=== PATIENT | female | born 1940 | race Caucasian/White ===

== ENCOUNTER 2020-01-06 18:19 | Inpatient (IN) | payer MEDICARE ==
[~2020-01-06] VITALS: Ht 160 cm; Wt 53.5 kg
[2020-01-06 19:50] VITALS: BP 139/79
[2020-01-06 20:00] VITALS: BP 141/82
[2020-01-06 20:24] VITALS: BP 139/79
[2020-01-06] MEDS ORDERED: MAG HYDROX/AL HYDROX/SIMETH 30 ML UDC PO PRN (20:30)
[2020-01-06] MEDS ORDERED: clonazePAM 0.5 MG TABLET PO PRN (20:30)
[2020-01-06] MEDS ORDERED: BLOOD SUGAR DIAGNOSTIC 1 EACH STRIP IN ONE (20:30)
[2020-01-06] MEDS ORDERED: MAGNESIUM HYDROXIDE 30 ML UDC PO PRN (20:30)
[2020-01-06] MEDS ORDERED: TEMAZEPAM 7.5 MG CAPSULE PO PRN (20:30)
--- NOTE | 2020-01-06 20:50 | NUR ---
LEFT A NOTE MESSAGE ON MD BOARD SPOKE TO SON ANDRADE @ [phone] & SON WOULD LIKE TO TALK TO THE PSYCHIATRIST OF HIS MOTHER SOFIYA ABRAHAM FOR UPDATES. WILL ENDORSE TO AM RN WELL.
--- NOTE | 2020-01-06 21:00 | NUR ---
GPS RN NOTE: ADMISSION ADMITTED PATIENT FROM [facility], 79-YR OLD FEMALE, DIRECT ADMIT TO GPS UNIT. PATIENT WAS TAKEN TO [facility] FROM HOME BY HER SON. PER 5150 HOLD, PATIENT IS ANXIOUS/CONFUSED. PT. WAS BROUGHT TO THE HOSPITAL BY FAMILY MEMBER DUE TO WORSENING AGITATION, INSOMNIA. PER SON, PT. HAS H/O BIPOLAR D/O FOR WHICH SHE HAS BEEN TAKING MEDS. PT. HAS NOT BEEN SLEEPING SINCE HER 2 MONTHS AGO. SHE SLEEPS FOR 2 HOURS & THEN STARTS YELLING & SCREAMING. SUSPICIOUS ABOUT HER SONS. ACCUSED OTHER FAMILY MEMBERS WELL. PATIENT DENIED SI/HI. PATIENT IS UNABLE TO STATE PLAN FOR SELF CARE. UPON FACE TO FACE ASSESSMENT, PATIENT IS A/O X 2, CONFUSED, FORGETFUL, ANXIOUS/RESTLESS AT TIMES. DEPRESSED, CRYING, MISSING HER , EMOTIONAL, ACCUSING HER SON HAVING,"TWO FACE", FLAT AFFECT. DENIES SI/HI/AVH AT THIS TIME. DISORGANIZED, DISHEVELED. AMBULATORY/UNSTEADY, HIGH FALL RISK, INCONTINENT. PT'S RIGHTS HANDBOOK AND A GUIDE TO PRESCRIPTION MEDICATIONS GIVEN. IN NO APPARENT DISTRESS NOTED. BELONGINGS WERE INVENTORIED AND CHECKED FOR CONTRABAND. PT. IS UNDER THE PSYCHIATRIC CARE OF DR. AMOS & UNDER THE MEDICAL CARE OF DR. GOMEZ. ORDERS OBTAINED FROM . SKIN ASSESSMENT DONE. PICTURES TAKEN & PLACED IN CHART. PT DENIES PAIN/ DISCOMFORT AT THIS TIME. BED LOCKED AND PLACED IN LOWEST POSITION TO MAINTAIN SAFETY. BED ALARM ON. FALL PRECAUTIONS IMPLEMENTED. BED ALARM ON. WILL CONTINUE TO MONITOR Q15 MINS. FOR SAFETY AND BEHAVIOR.
--- NOTE | 2020-01-06 21:00 | NUR ---
DR. AMOS WAS NOTIFIED BY CHARGE NURSE ABOUT PATIENT'S ADMISSION.
[2020-01-06] MEDS ORDERED: CITA20TA19 PO (22:32)
[2020-01-06] MEDS ORDERED: AMIT50TA3 PO (22:32)
[2020-01-06] MEDS ORDERED: RISP0.5T20 PO (22:32)
[2020-01-06] MEDS ORDERED: OMEP20CA15 PO (22:32)
[2020-01-06] MEDS ORDERED: NAPR-1143 PO (22:32)
[2020-01-06] MEDS ORDERED: ASPI-1152 PO (22:32)
[2020-01-06] MEDS ORDERED: LACT1CAP69 PO (22:32)
[2020-01-06] MEDS ORDERED: ASCO-317 PO (22:32)
[2020-01-06] MEDS ORDERED: ROSU5TAB PO (22:32)
[2020-01-06] MEDS ORDERED: AMLO5TAB4 PO (22:32)
[2020-01-06] MEDS ORDERED: METF-440 PO (22:32)
--- NOTE | 2020-01-06 23:00 | NUR ---
NOTIFIED CHRISTIE BEATTY BY CHARGE NURSE TO RECONCILE HOME MEDICINES & STATED HE WILL DO IT SHORTLY. Addendum: 01/07/20 at 0058 by PRESTON TOTH RN LUDWIG DAVIS WAS NOTIFIED.
[2020-01-06] MEDS ORDERED: GLIM1TAB18 PO (23:04)
--- NOTE | 2020-01-07 05:54 | NUR ---
GPS RN NOTE PATIENT SLEPT WELL AT NIGHT, NO ACUTE CHANGES NOTED. REDIRECTABLE. ASSISTED WITH ADL CARE, UNSTEADY, FALL RISK. BED ALARM ON. CALM & RELAXED AT THIS TIME. NO BEHAVIOR EPISODE NOTED AT THIS TIME. WILL ENDORSE TO AM RN FOR CONTINUITY OF CARE.
--- NOTE | 2020-01-07 06:10 | NUR ---
GPS RN NOTE - FYI PER PATIENT'S SON ANDRADE, "PATIENT HAS HAD DIARRHEA MULTIPLE TIMES IN THE PAST & NOT SURE WHAT IS THE REASON & PATIENT GETS VERY ANXIOUS DURING THAT TIME. IF PATIENT SLEEPS WELL, SHE IS BETTER, OTHERWISE FREQUENT DIARRHEA & INSOMNIA CAUSES TO CHANGE HER BEHAVIOR. WILL ENDORSE TO AM RN TO CONTINUE MONITORING FOR ANY CHANGES.
[2020-01-07 07:02] LABS: ALBUMIN 3.2 g/dL (3.4-5.0); BILIRUBIN,TOTAL 0.4 mg/dL (0.2-1.0); CALCIUM, SERUM 9.2 mg/dL (8.5-10.1); CREATININE 0.9 mg/dL (0.6-1.3); POTASSIUM 2.9 mmol/L (3.5-5.1); TOTAL PROTEIN, SERUM 7.7 g/dL (6.4-8.2)
[2020-01-07 08:00] VITALS: BP 152/87
[2020-01-07] MEDS ORDERED: GLIMEPIRIDE 1 MG TABLET PO SCH (08:30)
--- NOTE | 2020-01-07 09:00 | NUR ---
RN NOTE- PT TEARFUL AND PARANOID THINKING SON IS DOING THINGS BEHIND HER BACK THOUGH DOESN'T SPECIFY MED COMPLIANT COOPERATIVE [facility] CONTACT DENYING SI HI AH VH THOUGH CRIES ON QUERY . DIRECTABLE
--- NOTE | 2020-01-07 09:05 | NUR ---
RN NOTE- PHARMACY CALLED REGARDING PTS AMARYL 1MG. DOSING UNKNOWN. PHONED SON AT THIS TIME. NO ANSWER AND VM FULL. WILL TRY AGAIN LATER
[2020-01-07] MEDS: AMLODIPINE BESYLATE 5 MG TABLET PO SCH (09:07)
[2020-01-07] MEDS: LACTOBACILLUS RHAMNOSUS GG 1 EACH CAP.SPRINK PO SCH (09:07)
[2020-01-07] MEDS: ASPIRIN EC 81 MG TABLET.DR PO SCH (09:07)
[2020-01-07] MEDS: PANTOPRAZOLE 40 MG TABLET.DR PO SCH (09:07)
[2020-01-07] MEDS: METFORMIN 500 MG TABLET PO SCH ×2 (09:07→16:54)
[2020-01-07] MEDS: POTASSIUM CHLORIDE 20 MEQ TAB.PRT.SR PO SCH ×3 (10:31→12:52)
--- NOTE | 2020-01-07 11:00 | NUR ---
RN NOTE- SPOKE Shlomo ZAFAR PTS SON. HE STATED THAT MOTHER WAS ON GLIMEPERIDE 1 MG BUT IT MADE HER BOTTOM OUT AND SHE HAD TO GO TO ER. FAMILY STATED THEY GAVE HER 0.5 MG IF BS WAS GREATER THAN 180. RELAYED THIS INFO TO .
[2020-01-07] MEDS: LOPERAMIDE HCL (2 MG CAP) 2 MG CAPSULE PO PRN (12:24)
--- NOTE | 2020-01-07 12:26 | NUR ---
RN NOTE- PT W DIARRHEA X 2 EPISODES THIS MORNING. LOPERAMIDE 2 MG CAP GIVEN
[2020-01-07 12:37] LABS: BASOPHILS # (AUTO) 0.1 /CMM (0.0-0.2); BASOPHILS % (AUTO) 1.2 % (0.0-2.0); HEMATOCRIT 38 % (33-45); HEMOGLOBIN 12.3 g/dL (11.5-14.8); LYMPHOCYTES # (AUTO) 1.8 /CMM (0.8-4.8); LYMPHOCYTES % (AUTO) 30.3 % (20.0-44.0); MEAN CORPUSCULAR HGB CONC 33 g/dl (31.0-36.0); MEAN CORPUSCULAR VOLUME 96 fL (82-100); MONOCYTES # (AUTO) 0.9 /CMM (0.1-1.30); NEUTROPHILS # (AUTO) 2.9 /CMM (1.8-8.9); NEUTROPHILS % (AUTO) 49.5 % (43.0-81.0); PLATELET COUNT (AUTO) 312 /CMM (150-450); RED BLOOD CELL COUNT(AUTO) 3.94 MIL/uL (4.0-5.2); WHITE BLOOD COUNT (AUTO) 5.8 K/uL (4.3-11.0)
[2020-01-07 15:09] LABS: EOSINOPHILS % (MANUAL) 8 % (0-4); LYMPHOCYTES % (MANUAL) 33 % (16-48); MONOCYTES % (MANUAL) 10 % (0-11.0); NEUTROPHILS % (MANUAL) 49 (42-76)
[2020-01-07 16:00] VITALS: BP_SYST 132; BP_SYST 152; BP_DIAS 64; BP_DIAS 74
[2020-01-07 21:16] VITALS: BP 149/86
[2020-01-07] MEDS: ATORVASTATIN 10 MG TABLET PO SCH (21:21)
[2020-01-07] MEDS ORDERED: MIRTAZAPINE 15 MG TABLET PO ONE (21:30)
[2020-01-07 21:40] VITALS: BP 151/85
--- NOTE | 2020-01-07 21:40 | NUR ---
PATIENT'S SON CAL CALLED TO GET UPDATES ABOUT HIS MOTHER'S HEALTH CONDITION. GAVE HIM UPDATES & CAL LEFT HIS PHONE NUMBER [phone] IN CASE FAMILY NEEDS TO BE CALLED OR ANDRADE (PT'S 2ND SON) IS UNAVAILABLE.
[2020-01-07] MEDS: HALOPERIDOL 1 MG TABLET PO SCH (21:53)
--- NOTE | 2020-01-07 22:28 | NUR ---
GPS RN NOTE: PATIENT SEEN BY MD DR. GAINES SEEN THE PATIENT WITH NEW MEDICINE ORDERS, STARTED PATIENT ON HALDOL, REMERON & DEPAKOTE. ORDERS NOTED & CARRIED OUT.
[2020-01-07 22:30] VITALS: BP 138/87
--- NOTE | 2020-01-07 22:30 | NUR ---
DR. GAINES CALLED ANDRADE & DISCUSSED WITH HIM ABOUT PLAN OF TREATMENT TO BE CONTINUED. ALSO INFORMED/EXPLAINED TO ANDRADE ABOUT EXTENSION OF 5150 HOLD TO 5250 ONCE HOD 5150 EXPIRES.
[2020-01-07] MEDS ORDERED: Z GUARD REMEDY 4 OZ OINT TP PRN (23:00)
--- NOTE | 2020-01-07 23:04 | NUR ---
GPS RN NOTE: LUDWIG DAVIS VISITED THE UNIT PATIENT IS INCONTINENT OF B & BM, HAS H/O LOOSE BM & PER AM RN REPORT PATIENT HAD LOOSE BM X 2. PATIENT VERBALIZED PERINEAL ITCHING, ASSESSED & NO REDNESS NOTED AT THIS TIME. NOTIFIED LUDWIG DAVIS ABOUT PATIENT'S CONCERN & DIVISION ORDER TECHNICIAN ORDERED Z GUARD REMEDY. NOTED & CARRIED OUT. WILL KEEP THE PATIENT CLEAN & DRY. WOUND/SKIN MANAGEMENT CARE PLAN INITIATED.
[2020-01-08] MEDS: LOPERAMIDE HCL (2 MG CAP) 2 MG CAPSULE PO PRN ×2 (02:03→12:54)
--- NOTE | 2020-01-08 02:03 | NUR ---
GPS RN NOTE: IMODIUM GIVEN PATIENT HAD EPISODE OF DIARRHEA X 1, PRN IMODIUM 2 MG 1 CAP PO GIVEN ORDERED. PATIENT HAD PO FLUIDS TOLERATED. CONTINUING TO MONITOR FOR ANY CHANGES.
[2020-01-08 07:03] LABS: CALCIUM, SERUM 9.3 mg/dL (8.5-10.1); CREATININE 0.9 mg/dL (0.6-1.3); POTASSIUM 3.1 mmol/L (3.5-5.1)
--- NOTE | 2020-01-08 07:09 | NUR ---
GPS RN NOTE PATIENT HAS H/O TB, 3 YEARS AGO, PER RECORDS FROM [facility]. NO RESPIRATORY SYMPTOMS NOTED AT THIS TIME. ENDORSED TO AM RN TO INFORM INFECTION CONTROL NURSE.
[2020-01-08] MEDS: PANTOPRAZOLE 40 MG TABLET.DR PO SCH (07:39)
[2020-01-08 08:00] VITALS: BP 131/78
[2020-01-08] MEDS: AMLODIPINE BESYLATE 5 MG TABLET PO SCH (08:25)
[2020-01-08] MEDS: DIVALPROEX SODIUM 250 MG TABLET.DR PO SCH ×2 (08:25→21:18)
[2020-01-08] MEDS: ASPIRIN EC 81 MG TABLET.DR PO SCH (08:25)
[2020-01-08] MEDS: LACTOBACILLUS RHAMNOSUS GG 1 EACH CAP.SPRINK PO SCH (08:25)
[2020-01-08] MEDS: METFORMIN 500 MG TABLET PO SCH ×2 (08:26→17:06)
[2020-01-08] MEDS: GLIMEPIRIDE 1 MG TABLET PO SCH (08:26)
[2020-01-08] MEDS: HALOPERIDOL 1 MG TABLET PO SCH ×2 (08:26→21:19)
[2020-01-08] MEDS: Z GUARD REMEDY 2 OZ OINT TP SCH (08:30)
--- NOTE | 2020-01-08 08:32 | NUR ---
RN-CO: NOTIFIED DR ÁLVAREZ ABOUT THE K 3.1. AWAITING FOR ORDERS.
--- NOTE | 2020-01-08 09:00 | NUR ---
RN NOTE- PT CALM ORIENTED TO PERSON PLACE DIRECTABLE NO CRYING MED COMPLIANT DIARRHEA TREATED W LOMOTIL. NO LOOSE STOOLS THIS MORNING PO INTAKE GOOD.
[2020-01-08] MEDS: POTASSIUM CHLORIDE 20 MEQ TAB.PRT.SR PO SCH ×2 (10:13→11:16)
--- NOTE | 2020-01-08 11:55 | NUR ---
FAMILY CONTACT: SW contacted pts son Chepe ([phone]) for collateral information and treatment.discharge planning. Per Chepe, he states pt began decompensating 2 months ago after her suddenly of a heart attack after he fell in the bathroom. Son states that pts and pt kept pts mental illness a secret and sons were not aware of pts mental illness until recently. Son states pt became paranoid/delusional and started blaming her sons that were trying to poison her when giving her her medication. Son states that he and brother have been unable to leave the house due to fear of pts safety due to her mental illness. Son states he wishes for pt to return home with a caregiver.
--- NOTE | 2020-01-08 12:56 | NUR ---
RN NOTE- PT W EPISODE OF LOOSE STOOLS. TAKEN TO SHOWER AND GIVEN SHOWER, CLEAN CLOTHING. PO INTAKE GOOD, FLUID INTAKE GOOD. LOPERAMIDE 2 MG GIVEN
--- NOTE | 2020-01-08 13:30 | NUR ---
INITIAL DISCHARGE PLAN: Per son Chepe [phone] he wishes for pt to return home [id number] [facility] [address]. SW will help form a safe and proper discharge in collaboration with .
--- NOTE | 2020-01-08 14:29 | NUR ---
FAMILY CONTACT: SW received a call from pts son Yuval [phone] providing SW with outside psychiatrist information. Pt has a follow up appointment on February 26, [address] Kasia Woody at [facility] Address: [facility] [facility], [place] [address] .
[2020-01-08 16:00] VITALS: BP 147/78
--- NOTE | 2020-01-08 16:00 | NUR ---
GROUP NOTE: SW encouraged pt to attend group therapy on this present day. Pt is not appropriate for group, pt is paranoid and accusing SW of poisoning her. Pt is agitated with labile mood.
--- NOTE | 2020-01-08 18:42 | NUR ---
RN NOTE- PT AT NURSES STATION CRYING YELLING ANXIOUS, KLONOPIN 0.25 MG GIVEN
[2020-01-08 20:12] VITALS: BP 158/82
[2020-01-08] MEDS: ATORVASTATIN 10 MG TABLET PO SCH (21:19)
[2020-01-08] MEDS: MIRTAZAPINE 15 MG TABLET PO SCH (21:20)
[2020-01-08 22:17] VITALS: BP 131/66
[2020-01-09] MEDS: LOPERAMIDE HCL (2 MG CAP) 2 MG CAPSULE PO PRN (02:20)
[2020-01-09] MEDS: PANTOPRAZOLE 40 MG TABLET.DR PO SCH (07:59)
[2020-01-09 08:00] VITALS: BP 143/87
[2020-01-09] MEDS: AMLODIPINE BESYLATE 5 MG TABLET PO SCH (08:28)
[2020-01-09] MEDS: HALOPERIDOL 1 MG TABLET PO SCH ×2 (08:28→21:06)
[2020-01-09] MEDS: METFORMIN 500 MG TABLET PO SCH ×2 (08:28→16:17)
[2020-01-09] MEDS: LACTOBACILLUS RHAMNOSUS GG 1 EACH CAP.SPRINK PO SCH (08:28)
[2020-01-09] MEDS: DIVALPROEX SODIUM 250 MG TABLET.DR PO SCH ×2 (08:28→21:05)
[2020-01-09] MEDS: ASPIRIN EC 81 MG TABLET.DR PO SCH (08:28)
[2020-01-09] MEDS: GLIMEPIRIDE 1 MG TABLET PO SCH (08:29)
[2020-01-09] MEDS: Z GUARD REMEDY 2 OZ OINT TP SCH (08:29)
--- NOTE | 2020-01-09 10:24 | NUR ---
WOUND CARE CONSULT: PT PRESENTS WITH LESION/RASH TO BILATERAL ANKLES, ESPECIALLY LEFT, PRESENT ON ADMISSION. PT STATES USES HYDROCORTISONE AT HOME. RECOMMEND DPM CONSULT. DR DORANTES NOTIFIED OF CONSULT REQUEST. WILL SEE PRNMisael SORENSEN IN AGREEMENT WITH PLAN OF CARE. CURRENT SIMON SCORE IS 18.
--- NOTE | 2020-01-09 12:45 | NUR ---
RN NOTE: PODIATRY CONSULT PODIATRY AT BEDSIDE. ORDER FOR CORTISONE CREAM TO BILAT OUTER ANKLES
--- NOTE | 2020-01-09 14:16 | NUR ---
GROUP NOTE: SW encouraged pt to attend group therapy on this present day. Pt was asleep and not easily roused by verbal cues.
[2020-01-09 16:00] VITALS: BP 130/77
[2020-01-09 20:35] VITALS: BP 139/74
[2020-01-09] MEDS: ATORVASTATIN 10 MG TABLET PO SCH (21:06)
[2020-01-09] MEDS: MIRTAZAPINE 15 MG TABLET PO SCH (21:06)
[2020-01-10 08:00] VITALS: BP 135/82
[2020-01-10] MEDS: ASPIRIN EC 81 MG TABLET.DR PO SCH (09:51)
[2020-01-10] MEDS: AMLODIPINE BESYLATE 5 MG TABLET PO SCH (09:51)
[2020-01-10] MEDS: HALOPERIDOL 1 MG TABLET PO SCH ×2 (09:52→21:15)
[2020-01-10] MEDS: METFORMIN 500 MG TABLET PO SCH ×2 (09:52→18:13)
[2020-01-10] MEDS: LACTOBACILLUS RHAMNOSUS GG 1 EACH CAP.SPRINK PO SCH (09:52)
[2020-01-10] MEDS: DIVALPROEX SODIUM 250 MG TABLET.DR PO SCH ×2 (09:52→21:14)
[2020-01-10] MEDS: PANTOPRAZOLE 40 MG TABLET.DR PO SCH (09:56)
[2020-01-10] MEDS: GLIMEPIRIDE 1 MG TABLET PO SCH (09:56)
[2020-01-10] MEDS: HYDROCORTISONE 1% CREAM 28.35 GM TUBE TP SCH (09:56)
[2020-01-10] MEDS: Z GUARD REMEDY 2 OZ OINT TP SCH (09:56)
[2020-01-10 16:00] VITALS: BP 138/65
--- NOTE | 2020-01-10 18:00 | NUR ---
MAHSA DONIS CALLED.#[phone].REQUESTS DR. GAINES PSYCHIATRIST CALL HIM- INFORMED.
[2020-01-10 20:00] VITALS: BP 152/84
[2020-01-10] MEDS: MIRTAZAPINE 15 MG TABLET PO SCH (21:15)
[2020-01-10] MEDS: ATORVASTATIN 10 MG TABLET PO SCH (21:15)
[2020-01-11 08:00] VITALS: BP 141/86
[2020-01-11] MEDS: ASPIRIN EC 81 MG TABLET.DR PO SCH (08:40)
[2020-01-11] MEDS: LACTOBACILLUS RHAMNOSUS GG 1 EACH CAP.SPRINK PO SCH (08:40)
[2020-01-11] MEDS: DIVALPROEX SODIUM 250 MG TABLET.DR PO SCH ×2 (08:40→21:39)
[2020-01-11] MEDS: METFORMIN 500 MG TABLET PO SCH ×2 (08:40→16:34)
[2020-01-11] MEDS: PANTOPRAZOLE 40 MG TABLET.DR PO SCH (08:40)
[2020-01-11] MEDS: HALOPERIDOL 1 MG TABLET PO SCH ×2 (08:41→21:39)
[2020-01-11] MEDS: AMLODIPINE BESYLATE 5 MG TABLET PO SCH (08:41)
[2020-01-11] MEDS: HYDROCORTISONE 1% CREAM 28.35 GM TUBE TP SCH (08:42)
[2020-01-11] MEDS: GLIMEPIRIDE 1 MG TABLET PO SCH (08:42)
[2020-01-11] MEDS: Z GUARD REMEDY 2 OZ OINT TP SCH (08:43)
--- NOTE | 2020-01-11 14:34 | NUR ---
INDIVIDUAL INTERVENTION: Pt is confused stating she is on a ship and is waiting for get off. Pt believes SW is a different person named Pau and became agitated when SW told her otherwise. Pt stated, you don't fool me, I know you're lying about who you are." Pt is confused, disorganized, and disoriented and unable to engage in a proper conversation.
--- NOTE | 2020-01-11 14:37 | NUR ---
FAMILY CONTACT: ILEANA contacted pts son Chepe ([phone]) to provide him with an update on pts progress. ILEANA left a voicemail for callback.
--- NOTE | 2020-01-11 14:59 | NUR ---
FAMILY CONTACT: ILEANA received a call from pts son Yuval [phone] and ILEANA provided him with an update on pts progress. Per son he wishes for pt to be discharged home. Addendum: 01/15/20 at 1640 by ROMAIN TEJEDA Per son he wishes for pt to be discharged home and is aware of pts behavior. ILEANA discussed SNF placement and son refused stating he wishes for pt to return home under son's care.
[2020-01-11 15:47] VITALS: BP 144/77
[2020-01-11] MEDS: ACETAMINOPHEN 325 MG TABLET PO PRN (17:05)
[2020-01-11] MEDS: ATORVASTATIN 10 MG TABLET PO SCH (21:39)
[2020-01-11] MEDS: MIRTAZAPINE 15 MG TABLET PO SCH (21:39)
[2020-01-12 06:31] VITALS: BP 141/86
[2020-01-12 08:00] VITALS: BP 141/79
[2020-01-12] MEDS: PANTOPRAZOLE 40 MG TABLET.DR PO SCH (08:30)
[2020-01-12] MEDS: LACTOBACILLUS RHAMNOSUS GG 1 EACH CAP.SPRINK PO SCH (08:30)
[2020-01-12] MEDS: ASPIRIN EC 81 MG TABLET.DR PO SCH (08:30)
[2020-01-12] MEDS: METFORMIN 500 MG TABLET PO SCH ×2 (08:31→16:50)
[2020-01-12] MEDS: HALOPERIDOL 1 MG TABLET PO SCH ×2 (08:32→21:17)
[2020-01-12] MEDS: GLIMEPIRIDE 1 MG TABLET PO SCH (08:32)
[2020-01-12] MEDS: DIVALPROEX SODIUM 250 MG TABLET.DR PO SCH ×2 (08:32→21:17)
[2020-01-12] MEDS: AMLODIPINE BESYLATE 5 MG TABLET PO SCH (08:33)
[2020-01-12] MEDS: Z GUARD REMEDY 2 OZ OINT TP SCH (09:22)
[2020-01-12] MEDS: HYDROCORTISONE 1% CREAM 28.35 GM TUBE TP SCH (09:22)
--- NOTE | 2020-01-12 13:33 | NUR ---
FAMILY CONTACT: SW received a call from pts son Chepe ([phone]) requesting updates information. ILEANA informed him that SW spoke with pts son Yuval yesterday and provided him with detailed information including diagnosis and aftercare follow up. Son sated that he would follow up with brother.
--- NOTE | 2020-01-12 14:00 | NUR ---
GROUP NOTE: SW encouraged pt to attend group therapy on this present day. Pt was asleep and not easily roused by verbal cues.
[2020-01-12 16:00] VITALS: BP 148/68
[2020-01-12] MEDS: ATORVASTATIN 10 MG TABLET PO SCH (21:29)
[2020-01-12] MEDS: MIRTAZAPINE 15 MG TABLET PO SCH (21:29)
[2020-01-12 23:42] VITALS: BP 158/77
--- NOTE | 2020-01-13 06:36 | NUR ---
GPS RN CLOSING NOTE: PT CURRENTLY LAYING ON HER BED, AWAKE, ALERT AND ORIENTED X2. PT SLEPT FOR ABOUT 4 HR LAST NIGHT. RESPIRATION EVEN AND UNLABORED WITH EQUAL RISE AND FALL OF THE CHEST, ON ROOM AIR. NO S/S OF ANY DISTRESS AT THIS TIME. NO BEHAVIORAL ISSUES THIS SHIFT. WILL CONTINUE TO MONITOR AND ENDORSE TO AM SHIFT
[2020-01-13 08:00] VITALS: BP 141/85
[2020-01-13] MEDS: ASPIRIN EC 81 MG TABLET.DR PO SCH (09:16)
[2020-01-13] MEDS: METFORMIN 500 MG TABLET PO SCH ×2 (09:16→18:06)
[2020-01-13] MEDS: HALOPERIDOL 1 MG TABLET PO SCH ×2 (09:16→21:27)
[2020-01-13] MEDS: LACTOBACILLUS RHAMNOSUS GG 1 EACH CAP.SPRINK PO SCH (09:18)
[2020-01-13] MEDS: DIVALPROEX SODIUM 250 MG TABLET.DR PO SCH ×2 (09:18→21:26)
[2020-01-13] MEDS: AMLODIPINE BESYLATE 5 MG TABLET PO SCH (09:18)
[2020-01-13] MEDS: GLIMEPIRIDE 1 MG TABLET PO SCH (09:18)
[2020-01-13] MEDS: PANTOPRAZOLE 40 MG TABLET.DR PO SCH (09:40)
[2020-01-13] MEDS: HYDROCORTISONE 1% CREAM 28.35 GM TUBE TP SCH (09:46)
[2020-01-13] MEDS: Z GUARD REMEDY 2 OZ OINT TP SCH (09:46)
[2020-01-13] MEDS: ACETAMINOPHEN 325 MG TABLET PO PRN (11:50)
--- NOTE | 2020-01-13 11:51 | NUR ---
medicated for headache with 650 mg po of tylenol.
[2020-01-13 16:00] VITALS: BP 112/62
--- NOTE | 2020-01-13 16:54 | NUR ---
quiet,no complaints.
[2020-01-13 20:02] VITALS: BP 139/78
[2020-01-13] MEDS: ATORVASTATIN 10 MG TABLET PO SCH (21:27)
[2020-01-13] MEDS: MIRTAZAPINE 15 MG TABLET PO SCH (21:27)
--- NOTE | 2020-01-14 06:54 | NUR ---
GPS RN CLOSING NOTE: PT CURRENTLY LAYING ON BED, AWAKE ALERT AND ORIENTED X2. DIAPER CHANGED. RESPIRATION IS EVEN AND UNLABORED WITH EQUAL RISE AND FALL OF THE CHEST, ON ROOM AIR. NO S/S OF ANY DISTRESS AT THIS TIME. NO BEHAVIORAL ISSUES THIS SHIFT. ENDORSING TO AM SHIFT
[2020-01-14 08:00] VITALS: BP 143/73
[2020-01-14] MEDS: PANTOPRAZOLE 40 MG TABLET.DR PO SCH (08:05)
[2020-01-14] MEDS: ASPIRIN EC 81 MG TABLET.DR PO SCH (08:16)
[2020-01-14] MEDS: DIVALPROEX SODIUM 250 MG TABLET.DR PO SCH ×2 (08:16→20:45)
[2020-01-14] MEDS: METFORMIN 500 MG TABLET PO SCH ×2 (08:16→17:27)
[2020-01-14] MEDS: HALOPERIDOL 1 MG TABLET PO SCH ×2 (08:16→20:45)
[2020-01-14] MEDS: LACTOBACILLUS RHAMNOSUS GG 1 EACH CAP.SPRINK PO SCH (08:16)
[2020-01-14] MEDS: GLIMEPIRIDE 1 MG TABLET PO SCH (08:16)
[2020-01-14] MEDS: AMLODIPINE BESYLATE 5 MG TABLET PO SCH (08:17)
[2020-01-14] MEDS: Z GUARD REMEDY 2 OZ OINT TP SCH (09:07)
[2020-01-14] MEDS: HYDROCORTISONE 1% CREAM 28.35 GM TUBE TP SCH (09:11)
[2020-01-14 16:00] VITALS: BP 141/77
[2020-01-14] MEDS: ACETAMINOPHEN 325 MG TABLET PO PRN (17:27)
--- NOTE | 2020-01-14 17:27 | NUR ---
RN NOTE: PAIN PT C/O 4/10 HEADACHE. MEDICATED WITH TYLENOL 650 MG PO PRN
[2020-01-14 20:00] VITALS: BP 140/72
[2020-01-14] MEDS: ATORVASTATIN 10 MG TABLET PO SCH (21:13)
[2020-01-14] MEDS: MIRTAZAPINE 15 MG TABLET PO SCH (21:13)
[2020-01-15 08:00] VITALS: BP 139/77
[2020-01-15] MEDS: PANTOPRAZOLE 40 MG TABLET.DR PO SCH (08:00)
[2020-01-15] MEDS: METFORMIN 500 MG TABLET PO SCH ×2 (08:10→16:01)
[2020-01-15] MEDS: ASPIRIN EC 81 MG TABLET.DR PO SCH (08:10)
[2020-01-15] MEDS: GLIMEPIRIDE 1 MG TABLET PO SCH (08:10)
[2020-01-15] MEDS: HALOPERIDOL 1 MG TABLET PO SCH (08:10)
[2020-01-15] MEDS: AMLODIPINE BESYLATE 5 MG TABLET PO SCH (08:11)
[2020-01-15] MEDS: DIVALPROEX SODIUM 250 MG TABLET.DR PO SCH (08:11)
[2020-01-15] MEDS: LACTOBACILLUS RHAMNOSUS GG 1 EACH CAP.SPRINK PO SCH (08:11)
[2020-01-15] MEDS: HYDROCORTISONE 1% CREAM 28.35 GM TUBE TP SCH (08:12)
[2020-01-15] MEDS: Z GUARD REMEDY 2 OZ OINT TP SCH (08:26)
--- NOTE | 2020-01-15 12:29 | NUR ---
INDIVIDUAL INTERVENTION: SW approached pt and provided emotional support to pt after SW noticed pt crying in the activity room. Pt began sobbing stating that she wanted to go home and that she no longer wanted to be here. Pt stated that she wanted to go with her sons and also stated that she was tired of all the medications. SW informed her that she would talk to the MD regarding her discharge plan.
--- NOTE | 2020-01-15 14:00 | NUR ---
FAMILY CONTACT: ILEANA contacted pts son Chepe ([phone]) to inform him MD has placed discharge order. Son agreed with discharge and stated that he will pick remover pt on this present day at 1600. Son requested SW provide him with clinicals and SW provided son with Medical Records contact number to request clinical information.
--- NOTE | 2020-01-15 14:23 | NUR ---
DISCHARGE PLAN: Pt will be discharged at 4:00pm via private vehicle [id number] [facility] [address]. Pts son Chepe [phone] will be picking pt up and transporting home. Pts mood is labile with congruent affect. Pt denied visual/auditory hallucinations and denied suicidal/homicidal ideation. Pt will follow up with [facility] psychiatrist Dr. Kasia Woody Address: [facility], [facility], [place] [address] on 02/26/2020 and clinicals were faxed to fax: [phone]. Pt was also given a referral to [facility] [address] [place] [address] and pt will also follow up with Labour Market Economist: Dr. Blake Schwartz Address: [address] [place] [id number] . The multidisciplinary exit care form was done, printed, signed, and given to the patient.
[2020-01-15 16:00] VITALS: BP 144/78
[2020-01-15] MEDS: ACETAMINOPHEN 325 MG TABLET PO PRN (16:01)
--- NOTE | 2020-01-15 16:01 | NUR ---
RN NOTE: PAIN PT C/O 4/10 HEAD ACHE. MED WITH TYLENOL 650MG PO PRN
--- NOTE | 2020-01-15 16:07 | NUR ---
AIR SURVEILLANCE OPERATOR NOTE: 79 YEAR OLD FEMALE DISCHARGED HOME IN STABLE CONDITION WITH SONCAL. PT COMPLIANT WITH MEDICATIONS, COOPERATIVE WITH TREATMENT PLANS. PATIENT DENIES SI/HI AND INSTRUCTED TO GO TO THE CLOSEST ER IF DEVELOPING SI/HI. BEHAVIOR IMPROVED, PSYCHIATRIC TREATMENT PLANS MET , MEDICAL TREATMENT PLANS DEFERRED FOR CONTINUAL MONITORING. EDUCATED PT'S REGARDING AFTERCARE, FOLLOW UP APPOINTMENTS WITH OUTSIDE ARRANGED PSYCHIATRIST AND DRILL HAND WITHIN ONE WEEK, PHONE NUMBERS AND ADDRESSES PROVIDED AND EXPLAINED TO CAL BRAGG. EXIT CARE EXPLAINED TO SON WELL MEDICAL PRESCRIPTIONS PROVIDED FOR ONE MONTH AND NEW PSYCHIATRIC MEDICATIONS EXPLAINED TO SON ALONG WITH RX FOR 30 DAY SUPPLY. COPY OF EXIT CARE INSTRUCTIONS PROVIDED TO SON. MEDICATION RECONCILED WITH DR. GAINES AND DR. PUENTE. PT UNABLE TO SIGN DISCHARGE PAPERWORK DUE TO MENTAL STATUS. SONCAL, SIGNED CONTINUING CARE FORM. PATIENT ID BAND REMOVED. PT LEFT THE HOSPITAL AT 1607 VIA PRIVATE VECHICLE.
[2020-01-16] MEDS ORDERED: DIVA-76 MT (14:05)
[2020-01-16] MEDS ORDERED: MIRT15TA7 MT (14:05)
== END 2020-01-15 16:07 | disposition home or self-care (01) | DRG 885 ==
LOC: GPS 19:32
PROVIDERS: ADMIT Psychiatry & Neurology Psychiatry; ATTEND Nurse Practitioner Acute Care
DX: F31.5 Bipolar disorder, current episode depressed, severe, with psychotic features (principal); F23 Brief psychotic disorder; E78.5 Hyperlipidemia, unspecified; G47.00 Insomnia, unspecified; I10 Essential (primary) hypertension; K44.9 Diaphragmatic hernia without obstruction or gangrene; F41.9 Anxiety disorder, unspecified; Z86.73 Personal history of transient ischemic attack (TIA), and cerebral infarction without residual deficits; E11.9 Type 2 diabetes mellitus without complications; M19.90 Unspecified osteoarthritis, unspecified site; L30.9 Dermatitis, unspecified; M20.42 Other hammer toe(s) (acquired), left foot; M20.41 Other hammer toe(s) (acquired), right foot; M62.50 Muscle wasting and atrophy, not elsewhere classified, unspecified site; E87.6 Hypokalemia; Z88.2 Allergy status to sulfonamides; R27.8 Other lack of coordination
CPT/HCPCS: 36415; 80048-TC; 80053-TC; 80061-TC; 82962-TC; 84132-TC; 85025-TC; 87081-TC; 97116-TC; 97530-TC

== ENCOUNTER 2020-01-16 04:07 | Inpatient (IN) | payer MEDICARE ==
[~2020-01-16] VITALS: Ht 152.4 cm; Wt 53.5 kg
[~2020-01-16 04:07] MED LIST: AMLO5TAB4 PO; ASCO-317 PO; ASPI-1152 PO; CITA20TA19 PO; GLIM1TAB18 PO; LACT1CAP69 PO; METF-440 PO; NAPR-1143 PO; OMEP20CA15 PO; RISP0.5T20 PO; ROSU5TAB PO
--- NOTE | 2020-01-16 04:30 | NUR ---
PT BIBF PER SON "PT WAS DISCHARGED FROM GPS AT [facility] AND WAS RECENTLY PLACED ON REMERON, HALDOL AND DEPAKOTE WHICH ARE NOT WORKING WELL". PER FAMILY PT SEEMS TO BE MORE AGITATED AT HOME. PT ALERT AND AWAKE, VSS, RESPIRATIONS EVEN AND UNLABORED ON RA W/ NAD NOTED. PT CONNECTED TO THE MONITOR AND POX
--- NOTE | 2020-01-16 04:33 | NUR ---
ARCHAEOLOGIST AT BEDSIDE FOR BLOOD DRAW
[2020-01-16 04:47] LABS: BASOPHILS # (AUTO) 0.1 /CMM (0.0-0.2); BASOPHILS % (AUTO) 1.2 % (0.0-2.0); EOSINOPHILS % (AUTO) 2.3 % (0.0-6.0); HEMATOCRIT 39 % (33-45); HEMOGLOBIN 13.2 g/dL (11.5-14.8); LYMPHOCYTES # (AUTO) 2.3 /CMM (0.8-4.8); LYMPHOCYTES % (AUTO) 24.1 % (20.0-44.0); MEAN CORPUSCULAR HGB CONC 34 g/dl (31.0-36.0); MEAN CORPUSCULAR VOLUME 95 fL (82-100); MONOCYTES % (AUTO) 10.7 % (2.0-12.0); NEUTROPHILS % (AUTO) 61.7 % (43.0-81.0); PLATELET COUNT (AUTO) 331 /CMM (150-450); RED BLOOD CELL COUNT(AUTO) 4.15 MIL/uL (4.0-5.2); WHITE BLOOD COUNT (AUTO) 9.7 K/uL (4.3-11.0)
[2020-01-16 04:56] LABS: CALCIUM, SERUM 9.7 mg/dL (8.5-10.1); CARBON DIOXIDE 29 mmol/L (21-32); CHLORIDE 94 mmol/L (98-107); GLUCOSE 126 mg/dL (74-106); POTASSIUM 3.4 mmol/L (3.5-5.1); SODIUM SERUM 131 mmol/L (136-145); UREA NITROGEN, BLOOD 26 mg/dL (7-18)
[2020-01-16 05:04] LABS: ACETAMINOPHEN 1 ug/ml (10-30); ALANINE AMINOTRANSFERASE 27 U/L (12-78); ALBUMIN 3.5 g/dL (3.4-5.0); ALCOHOL, BLOOD < 3 mg/dL (0-0); ALKALINE PHOSPHATASE 108 U/L (46-116); ASPARTATE AMINOTRANSFERASE 30 U/L (15-37); BILIRUBIN,DIRECT 0.1 mg/dL (0.0-0.2); BILIRUBIN,TOTAL 0.2 mg/dL (0.2-1.0); TOTAL PROTEIN, SERUM 8.7 g/dL (6.4-8.2)
[2020-01-16 05:05] LABS: SALICYLATE 1.5 mg/dL (2.8-20.0)
--- NOTE | 2020-01-16 05:30 | NUR ---
CALLED ROMAN BRUNSON FOR EVALUATION. NO ANSWER, WILL FOLLOW UP
--- NOTE | 2020-01-16 05:54 | NUR ---
URINE COLLECTED AND SENT TO LAB.
[2020-01-16 06:04] LABS: APPEARANCE,URINE Clear (CLEAR); BILIRUBIN,URINE Negative (NEGATIVE); BLOOD, URINE Trace-intact Ery/uL (NEGATIVE); COLOR,URINE Yellow (YELLOW); KETONES,URINE Negative (NEGATIVE); LEUKOCYTE ESTERASE ,URINE Trace (NEGATIVE); NITRITE, URINE Negative (NEGATIVE); PROTEIN,URINE Negative (NEGATIVE); UGLUCOSE Negative (NEGATIVE); UROBILINOGEN,URINE 0.2 EU/dL (0.2)
[2020-01-16 06:15] LABS: BACTERIA,URINE Few /HPF (None Seen); RBC,URINE 0-2 /HPF (0-2); SQUAMOUS EPITHELIAL CELL,UR Few /HPF (None Seen); WBC,URINE 0-2 /HPF (0-3)
--- NOTE | 2020-01-16 06:27 | NUR ---
CALLED ROMAN BRUNSON FOR EVALUATION. NO ANSWER, WILL FOLLOW UP
--- NOTE | 2020-01-16 09:00 | NUR ---
FAMILY CONTACT: SW received a call from pts son Chepe ([phone]) explaining what caused for him to bring pt to the ER after pt had been discharged yesterday. Son states that he felt pt was not stable for discharge and stated that pts physical health was worse than when she first came in. He also stated that once pt got home she came bizarre ans paranoid and stated that he was unable to give her the Haldol because he was unable to find it at any pharmacy. He then stated that pt began trembling and he was unable to care for her. Son states that he does not want Dr. Houston to continue treating pt as he feels he did not medicate pt adequately and also states that pt cannot return home as he and his brother are unable to care for pt at home.
--- NOTE | 2020-01-16 09:33 | NUR ---
SON: CAL DONIS ([phone]) REQUESTS PATIENT TO BE TRANSFERRED OR EVALUATED FROM A DIFFERENT PSYCHIATRIST, PREFFERABLY [facility] SPEAKING. PREFERRABLY [facility].
--- NOTE | 2020-01-16 10:01 | NUR ---
BREAKFAST TRAY PROVIDED, PATIENT TOLERATING PO WELL.
--- NOTE | 2020-01-16 11:41 | NUR ---
CALLED EGG CASER CHEY LAU, WILL CALL INTAKE AND EVAL PT
--- NOTE | 2020-01-16 11:43 | NUR ---
PATIENT ASLEEP IN BED, EASILY AROUSABLE BY VOICE. HOOKED TO MONITOR, VSS. WILL CONTINUE TO MONITOR ACCORDINGLY, SITTER AT BEDSIDE FOR SAFETY
--- NOTE | 2020-01-16 13:24 | NUR ---
PATIENT PLACED ON 5150 HOLD FOR GD BY SECURITY POLICE OFFICER CHEY WYMAN
--- NOTE | 2020-01-16 13:36 | NUR ---
MAHSA DONIS IN COMMUNICATION WITH CHEY WYMAN THROUGH PHONE.
--- NOTE | 2020-01-16 13:54 | NUR ---
ROOM 212-B
--- NOTE | 2020-01-16 13:57 | NUR ---
REPORT GIVEN TO MARIA ELENA OWENS FO GPS UNIT
[2020-01-16] MEDS ORDERED: MIRT15TA7 MT (14:05)
[2020-01-16] MEDS ORDERED: DIVA-76 MT (14:05)
--- NOTE | 2020-01-16 15:08 | NUR ---
FAMILY CONTACT: ILEANA received a call from pts son Chepe ([phone]) requesting medical records for pt, SW explained that in order to requests pts records he has to have a POA or have a signed consent from pt but due to pt having Dementia she is unable to sign any documents. Son became upset and stated he needed pts psychiatric records in order to seek proper mental health services for pt. SW recommended son seek contract paralegal to have legal power over pt. Son stated that he is considering taking pt home and wishes for her medication to be changed to Risperidone instead of Haldol. SW provided son with MD's office number to discuss medication and treatment.
--- NOTE | 2020-01-16 15:30 | NUR ---
MANGLE TENDER NOTE- 79 Y/O FEMALE READMITTED TO GPS UNIT ON HOLD 5150 FOR GD. PT WAS DC YESTERDAY INTO CRE OF FAMILY AND SHE DETERIORATED AT HOME. AGITATION REFUSAL OF MEDS AND OTHER BEHAVIORAL PROBLEMS LED FAMILY TO BRING INTO ED TODAY. VS- BP-123/69, HR- 96, RR- 18, T- 98.2, SATS- 96%RA. PT ACCU CHECK DONE, MRSA SWAB COMPLETED AND PHOTOGRAPHS TAKEN. ON FACE TO FACE ASSESSMENT- PT PRESENTS SLIGHTLY ANXIOUS THOUGH SHE CALMED QUICKLY, ALERT ORIENTED TO SELF ONLY, CONFUSED THOUGH DIRECTABLE AT PRESENT. PT DENIES SI HI AH VH AT PRESENT. DR GAINES AWARE OF ADMISSION, ORDERS WRITTEN AND COMPLIED WITH. PT RIGHTS PAMPHLET GIVEN AND UNDERSTOOD. PT RESTING QUIETLY IN BED. IN NO DISTRESS. NEEDS MET. MONITOR FOR SAFETY
[2020-01-16 16:00] VITALS: BP 123/69
[2020-01-16] MEDS ORDERED: MAGNESIUM HYDROXIDE 30 ML UDC PO PRN (17:30)
[2020-01-16] MEDS ORDERED: TEMAZEPAM 7.5 MG CAPSULE PO PRN (17:30)
[2020-01-16] MEDS ORDERED: MAG HYDROX/AL HYDROX/SIMETH 30 ML UDC PO PRN (17:30)
[2020-01-16] MEDS ORDERED: BLOOD SUGAR DIAGNOSTIC 1 EACH STRIP IN ONE (17:30)
[2020-01-16] MEDS ORDERED: MIRTAZAPINE 15 MG TABLET PO PRN (19:00)
[2020-01-16] MEDS ORDERED: GLIMEPIRIDE 1 MG TABLET PO SCH (19:00)
[2020-01-16 19:58] VITALS: BP 139/64
[2020-01-16] MEDS ORDERED: DEXTROSE 50%-WATER 50 ML DISP.SYRIN IV PRN (21:30)
[2020-01-16] MEDS: BLOOD SUGAR DIAGNOSTIC 1 EACH STRIP VI SCH (22:00)
[2020-01-16] MEDS: *INSULIN REGULAR(HUMULIN R)HUM 100 UNIT/ML VIAL SQ PRN (22:06)
--- NOTE | 2020-01-16 22:06 | NUR ---
GPS RN NOTES: REFUSED ACCU CHECK PT REFUSED ACCU CHECK DUE. PT STATED, "ME TIRED. NOT RIGHT NOW. I WANT LATER IN MORNING PLEASE. ME TIRED AND ASLEEP." EXPLAIN RISKS AND BENEFITS. PT STILL REFUSED X3. OFFERED HER SNACK AND FLUIDS. CONTINUE TO MONITOR.
[2020-01-17 07:37] LABS: THYROID STIMULATING HORMONE 1.824 uIU/mL (0.358-3.74)
[2020-01-17 07:39] LABS: ALBUMIN 3.1 g/dL (3.4-5.0); BILIRUBIN,TOTAL 0.2 mg/dL (0.2-1.0); CALCIUM, SERUM 9.4 mg/dL (8.5-10.1); CREATININE 0.9 mg/dL (0.6-1.3); POTASSIUM 3.9 mmol/L (3.5-5.1); TOTAL PROTEIN, SERUM 7.8 g/dL (6.4-8.2)
[2020-01-17 08:00] VITALS: BP 135/77
[2020-01-17] MEDS: BLOOD SUGAR DIAGNOSTIC 1 EACH STRIP VI SCH ×4 (08:49→22:02)
[2020-01-17] MEDS ORDERED: OMEPRAZOLE 20 MG CAPSULE.DR PO SCH (09:00)
[2020-01-17] MEDS: AMLODIPINE BESYLATE 5 MG TABLET PO SCH (09:19)
[2020-01-17] MEDS: ASPIRIN EC 81 MG TABLET.DR PO SCH (09:19)
[2020-01-17] MEDS: ACIDOPHILUS/BULGARICUS 1 EACH TAB.CHEW PO SCH (09:19)
[2020-01-17] MEDS: PANTOPRAZOLE 40 MG TABLET.DR PO SCH (09:19)
[2020-01-17] MEDS: GLIMEPIRIDE 1 MG TABLET PO SCH (09:19)
[2020-01-17] MEDS: METFORMIN 500 MG TABLET PO SCH ×2 (09:19→18:12)
[2020-01-17] MEDS: ATORVASTATIN 10 MG TABLET PO SCH (09:20)
--- NOTE | 2020-01-17 09:50 | NUR ---
Psychosocial Note: I, Barbara Jimenez PAPER REWINDER, attest to the patients previous psychosocial information dated 01/08/20 Update On Events leading to Admission and Discharge Plan: Pt has returned to the hospital within one day of her previous discharge date of 01/15/20. Per psychiatric hold, pt was BIB son from home due to agitation, refusing medication, and acting bizarre. Per hold, pt refusing medications and care and per son pt was aggressive at home. The current plan is to increase the patient on her medications and discharge pt to a Detention Facility as pts son Chepe [phone] is unable to safely manage pt at home due to pts behavior. Pt is only alert to her self and is confused, disorganized, and disoriented. The pt appeared to be in a dysphoric mood with an irritable affect. Pt appeared to be ambulatory, well-groomed and appropriately dressed. SW will work with the pt and the MD regarding appropriate discharge planning. SW will form a safe and proper discharge.
--- NOTE | 2020-01-17 10:37 | NUR ---
WOUND CARE CONSULT: PT PRESENTS WITH BLANCHABLE REDNESS TO MIDBACK AND SOME REDNESS TO RT ANKLE AREA, PRESENT ON ADMISSION. PT REQUESTING HYDROCORTISONE CREAM FOR ANKLE. RECOMMEND DPM CONSULT. DR DORANTES NOTIFIED OF READMISSION. PT IS AMBULATORY. WILL SEE PRN. IN AGREEMENT WITH PLAN OF CARE.
[2020-01-17] MEDS ORDERED: Z GUARD REMEDY 2 OZ OINT TP PRN (11:00)
--- NOTE | 2020-01-17 15:26 | NUR ---
INDIVIDUAL INTERVENTION: Pt is not appropriate for individual therapy at this time as pt is only alert to herself and unable to engage in a proper conversation.
--- NOTE | 2020-01-17 15:34 | NUR ---
FAMILY CONTACT: SW received a call from pts son Chepe ([phone]) requesting an update on pts transfer to [facility] as he states he spoke to the billing coordinator and she informed him she would work on transferring pt. SW informed him that at this time pt is not being transferred and informed him that pt is now under the care of Dr. Mack and informed him that this insurance underwriter will notify Dr. Mack to call him to discuss his concerns. Son agreed with receiving a call from Dr. Mack.
--- NOTE | 2020-01-17 15:51 | NUR ---
FAMILY CONTACT: SW contacted pts son Chepe ([phone]) and left a voicemail informing him that "pts son Yonis" has been calling the nurses station and requesting to speak with MD and also requesting pt information. SW informed him that MD and SW will only be speaking with one family member as its becoming complicated relaying information to various family members.
[2020-01-17 16:00] VITALS: BP 147/83
--- NOTE | 2020-01-17 16:04 | NUR ---
FAMILY CONTACT: SW received a call from pts son Chepe ([phone]) stating that he is pts main point of contact and states that after speaking with Dr. Mack he is looking forward to his treatment and states everything is going in the right direction.
--- NOTE | 2020-01-17 18:00 | NUR ---
COOPERATIVE,COMPLIANT,NO BEHAVIOR ISSUES.
[2020-01-17] MEDS: INSULIN REGULAR, HUMAN 100 UNIT/ML 3 ML VIAL SQ PRN (18:06)
[2020-01-17] MEDS: CITALOPRAM HYDROBROMIDE 20 MG TABLET PO SCH (18:12)
[2020-01-17 19:53] VITALS: BP_SYST 127; BP_SYST 143; BP_DIAS 72
[2020-01-17] MEDS ORDERED: ARIPIPRAZOLE 2 MG TABLET PO SCH (22:00)
[2020-01-17] MEDS: LORAZEPAM 0.5 MG TABLET PO PRN (22:00)
--- NOTE | 2020-01-17 22:00 | NUR ---
GPS-RN NOTE: ANXIETY PATIENT IS ANXIOUS AND WITH EPISODES OF CRYING. PT STATED "I MISS MY ". ADMINISTERED ATIVAN 1MG PO ORDERED. WILL CONTINUE TO MONITOR FOR SAFETY.
[2020-01-18] MEDS: TEMAZEPAM 7.5 MG CAPSULE PO PRN ×2 (02:02→22:46)
--- NOTE | 2020-01-18 02:02 | NUR ---
GPS-RN NOTE: INSOMNIA PATIENT C/O INABILITY TO SLEEP. ADMINISTERED RESTORIL 7.5MG PO ORDERED. WILL CONTINUE TO MONITOR.
[2020-01-18] MEDS: BLOOD SUGAR DIAGNOSTIC 1 EACH STRIP VI SCH ×4 (07:39→21:14)
[2020-01-18 08:00] VITALS: BP 132/75
[2020-01-18 08:05] VITALS: BP 132/75
[2020-01-18] MEDS: METFORMIN 500 MG TABLET PO SCH ×3 (08:40→16:41)
[2020-01-18] MEDS: GLIMEPIRIDE 1 MG TABLET PO SCH (08:41)
[2020-01-18] MEDS: AMLODIPINE BESYLATE 5 MG TABLET PO SCH (08:41)
[2020-01-18] MEDS: ATORVASTATIN 10 MG TABLET PO SCH (08:41)
[2020-01-18] MEDS: CITALOPRAM HYDROBROMIDE 20 MG TABLET PO SCH (08:41)
[2020-01-18] MEDS: ASPIRIN EC 81 MG TABLET.DR PO SCH (08:41)
[2020-01-18] MEDS: PANTOPRAZOLE 40 MG TABLET.DR PO SCH (08:41)
[2020-01-18] MEDS: ACIDOPHILUS/BULGARICUS 1 EACH TAB.CHEW PO SCH (08:41)
--- NOTE | 2020-01-18 09:28 | NUR ---
GPS RN note: Received patient AOx2, awake in bed. Brazilian speaking. Speaks and understands a little Surinamese. Med compliant. Educated on Medications. When passing out medications patient was rambling and telling a story in Brazilian. Needed to be redirected to be in the present. Denies SI/HI/VAH. Will continue to monitor Q15 for mood, safety and behavior.
[2020-01-18] MEDS: HYDROCORTISONE 1% CREAM 28.35 GM TUBE TP SCH (09:33)
--- NOTE | 2020-01-18 15:25 | NUR ---
INDIVIDUAL INTERVENTION: SW approached pt and provided emotional support to pt after SW noticed pt crying in her room. Pt began sobbing stating that she wanted to go home and that she no longer wanted to be here. Pt was speaking nonsensically and is unable to engage in an appropriate conversation due to pts Dementia.
[2020-01-18 16:00] VITALS: BP 120/74
--- NOTE | 2020-01-18 16:42 | NUR ---
GPS RN note: Metformin refusal patient refused Metformin 1700 dose stating that it gives her diarrhea
[2020-01-18 20:07] VITALS: BP 143/72
[2020-01-18] MEDS: ARIPIPRAZOLE 5 MG TABLET PO SCH (21:16)
[2020-01-19] MEDS: BLOOD SUGAR DIAGNOSTIC 1 EACH STRIP VI SCH ×4 (07:48→21:18)
[2020-01-19 08:00] VITALS: BP_SYST 134; BP_SYST 144; BP_DIAS 73; BP_DIAS 76
[2020-01-19] MEDS: METFORMIN 500 MG TABLET PO SCH ×2 (08:25→16:15)
[2020-01-19] MEDS: GLIMEPIRIDE 1 MG TABLET PO SCH (08:25)
[2020-01-19] MEDS: CITALOPRAM HYDROBROMIDE 20 MG TABLET PO SCH (08:26)
[2020-01-19] MEDS: PANTOPRAZOLE 40 MG TABLET.DR PO SCH (08:26)
[2020-01-19] MEDS: AMLODIPINE BESYLATE 5 MG TABLET PO SCH (08:26)
[2020-01-19] MEDS: ACIDOPHILUS/BULGARICUS 1 EACH TAB.CHEW PO SCH (08:26)
[2020-01-19] MEDS: ATORVASTATIN 10 MG TABLET PO SCH (08:27)
[2020-01-19] MEDS: ASPIRIN EC 81 MG TABLET.DR PO SCH (08:27)
[2020-01-19] MEDS: HYDROCORTISONE 1% CREAM 28.35 GM TUBE TP SCH (09:46)
--- NOTE | 2020-01-19 15:10 | NUR ---
INDIVIDUAL INTERVENTION: SW attempted to meet with pt at bedside pt was asleep and not easily aroused by verbal cues.
[2020-01-19 16:00] VITALS: BP 144/73
[2020-01-19 19:58] VITALS: BP 143/71
[2020-01-19] MEDS: ARIPIPRAZOLE 5 MG TABLET PO SCH (21:18)
[2020-01-19] MEDS: TEMAZEPAM 7.5 MG CAPSULE PO PRN (22:17)
[2020-01-20] MEDS: BLOOD SUGAR DIAGNOSTIC 1 EACH STRIP VI SCH ×4 (07:46→22:00)
[2020-01-20 08:00] VITALS: BP 136/70
[2020-01-20] MEDS: ASPIRIN EC 81 MG TABLET.DR PO SCH (08:18)
[2020-01-20] MEDS: GLIMEPIRIDE 1 MG TABLET PO SCH (08:18)
[2020-01-20] MEDS: METFORMIN 500 MG TABLET PO SCH ×2 (08:18→16:28)
[2020-01-20] MEDS: PANTOPRAZOLE 40 MG TABLET.DR PO SCH (08:18)
[2020-01-20] MEDS: ACIDOPHILUS/BULGARICUS 1 EACH TAB.CHEW PO SCH (08:18)
[2020-01-20] MEDS: CITALOPRAM HYDROBROMIDE 20 MG TABLET PO SCH (08:18)
[2020-01-20] MEDS: AMLODIPINE BESYLATE 5 MG TABLET PO SCH (08:19)
[2020-01-20] MEDS: ATORVASTATIN 10 MG TABLET PO SCH (08:19)
[2020-01-20] MEDS: HYDROCORTISONE 1% CREAM 28.35 GM TUBE TP SCH (10:39)
[2020-01-20 16:00] VITALS: BP 139/70
[2020-01-20 18:04] VITALS: BP 142/74
[2020-01-20] MEDS: ACETAMINOPHEN 325 MG TABLET PO PRN (18:04)
--- NOTE | 2020-01-20 18:04 | NUR ---
Pt. is complaining of headache. BP 142/74, MD 90. Tylenol tabs prn given. Will continue to monitor.
[2020-01-20] MEDS: ARIPIPRAZOLE 5 MG TABLET PO SCH (21:44)
[2020-01-20] MEDS: *INSULIN REGULAR(HUMULIN R)HUM 100 UNIT/ML VIAL SQ PRN (22:21)
--- NOTE | 2020-01-20 22:22 | NUR ---
GPS RN NOTE: PT BLOOD SUGAR AT 2200 147MG/DL. PT REFUSED 2UNIT INSULIN PER SLIDING ORDERED. PT CURRENTLY LAYING ON BED. RESPIRATION EVEN AND UNLABORED WITH EQUAL RISE AND FALL OF THE CHEST. NO S/S OF DISTRESS. WILL CONTINUE TO MONITOR.
[2020-01-21 04:21] VITALS: BP 148/77
[2020-01-21] MEDS: BLOOD SUGAR DIAGNOSTIC 1 EACH STRIP VI SCH ×4 (07:42→22:03)
[2020-01-21 08:00] VITALS: BP 135/74
[2020-01-21] MEDS: ATORVASTATIN 10 MG TABLET PO SCH (08:50)
[2020-01-21] MEDS: NAPROXEN 250 MG TABLET PO PRN (08:51)
[2020-01-21] MEDS: AMLODIPINE BESYLATE 5 MG TABLET PO SCH (08:51)
[2020-01-21] MEDS: ACIDOPHILUS/BULGARICUS 1 EACH TAB.CHEW PO SCH (08:51)
[2020-01-21] MEDS: ASPIRIN EC 81 MG TABLET.DR PO SCH (08:51)
[2020-01-21] MEDS: GLIMEPIRIDE 1 MG TABLET PO SCH (08:51)
[2020-01-21] MEDS: PANTOPRAZOLE 40 MG TABLET.DR PO SCH (08:51)
[2020-01-21] MEDS: METFORMIN 500 MG TABLET PO SCH ×2 (08:51→17:01)
[2020-01-21] MEDS: HYDROCORTISONE 1% CREAM 28.35 GM TUBE TP SCH (08:59)
[2020-01-21] MEDS ORDERED: CITALOPRAM HYDROBROMIDE 10 MG TABLET PO SCH (09:00)
[2020-01-21] MEDS: INSULIN REGULAR, HUMAN 100 UNIT/ML 3 ML VIAL SQ PRN (11:39)
--- NOTE | 2020-01-21 13:31 | NUR ---
RN-CO: DR AMOS WAS NOTIFIED THAT PATIENT'S SON CAL WANTS TO TALK TO HIM.
[2020-01-21 16:00] VITALS: BP 125/69
[2020-01-21 20:03] VITALS: BP 142/67
[2020-01-21 20:05] VITALS: BP 142/67
[2020-01-21] MEDS: ARIPIPRAZOLE 5 MG TABLET PO SCH (21:51)
[2020-01-21] MEDS: TEMAZEPAM 7.5 MG CAPSULE PO PRN (22:54)
[2020-01-22] MEDS: ACETAMINOPHEN 325 MG TABLET PO PRN (02:43)
[2020-01-22] MEDS: BLOOD SUGAR DIAGNOSTIC 1 EACH STRIP VI SCH ×4 (07:22→21:17)
--- NOTE | 2020-01-22 07:22 | NUR ---
rn notes BS of 99 at this time. Patient eats breakfast
[2020-01-22 08:00] VITALS: BP 143/83
[2020-01-22] MEDS: ACIDOPHILUS/BULGARICUS 1 EACH TAB.CHEW PO SCH (08:04)
[2020-01-22] MEDS: ASPIRIN EC 81 MG TABLET.DR PO SCH (08:04)
[2020-01-22] MEDS: ATORVASTATIN 10 MG TABLET PO SCH (08:04)
[2020-01-22] MEDS: NAPROXEN 250 MG TABLET PO PRN (08:04)
[2020-01-22] MEDS: PANTOPRAZOLE 40 MG TABLET.DR PO SCH (08:04)
[2020-01-22] MEDS: GLIMEPIRIDE 1 MG TABLET PO SCH (08:04)
[2020-01-22] MEDS: AMLODIPINE BESYLATE 5 MG TABLET PO SCH (08:04)
[2020-01-22] MEDS: METFORMIN 500 MG TABLET PO SCH ×2 (08:04→16:54)
[2020-01-22] MEDS: HYDROCORTISONE 1% CREAM 28.35 GM TUBE TP SCH (08:05)
[2020-01-22] MEDS: CITALOPRAM HYDROBROMIDE 20 MG TABLET PO SCH (08:07)
[2020-01-22] MEDS: LORAZEPAM 0.5 MG TABLET PO PRN (09:08)
--- NOTE | 2020-01-22 11:40 | NUR ---
rn notes patients bs 68, eating lunch at this time
--- NOTE | 2020-01-22 14:16 | NUR ---
GROUP NOTE: Pt was present during group therapy on this present day. Pt was unable to engage in an appropriate conversation. Pt was stating that she is Indy Watson and that her is Servando Watson. Pt then stated that her roommate did not let her sleep last night then went on to state that she came from [place] and was very rich. Pt is confused, disorganized, and disoriented but is calm with euthymic mood.
[2020-01-22 16:00] VITALS: BP 134/65
--- NOTE | 2020-01-22 18:30 | NUR ---
rn notes patient remains a/o x2-3, cooperative and will speak Eritrean sometimes. Able to understand and speak Chinese. No SI noted and was able to mingle with other patients in the activity room. Med compliant
[2020-01-22 19:54] VITALS: BP 141/74
[2020-01-22] MEDS: ARIPIPRAZOLE 5 MG TABLET PO SCH (21:11)
[2020-01-23] MEDS: TEMAZEPAM 7.5 MG CAPSULE PO PRN (00:04)
--- NOTE | 2020-01-23 00:04 | NUR ---
GPS-RN NOTE: INSOMNIA PATIENT C/O UNABLE TO SLEEP. ADMINISTERED RESTORIL 7.5MG PO ORDERED. WILL CONTINUE TO MONITOR.
[2020-01-23] MEDS: LORAZEPAM 0.5 MG TABLET PO PRN (03:39)
--- NOTE | 2020-01-23 03:39 | NUR ---
GPS-RN NOTE: ANXIETY PATIENT IS ANXIOUS, SCREAMING AND YELLING INTERMITTENTLY, TALKING TO HERSELF. ADMINISTERED ATIVAN 1MG PO ORDERED. WILL CONTINUE TO MONITOR FOR SAFETY.
[2020-01-23 08:02] VITALS: BP 130/66
[2020-01-23] MEDS: BLOOD SUGAR DIAGNOSTIC 1 EACH STRIP VI SCH ×4 (08:06→21:37)
[2020-01-23] MEDS: GLIMEPIRIDE 1 MG TABLET PO SCH (09:00)
[2020-01-23] MEDS: ASPIRIN EC 81 MG TABLET.DR PO SCH (09:21)
[2020-01-23] MEDS: PANTOPRAZOLE 40 MG TABLET.DR PO SCH (09:21)
[2020-01-23] MEDS: ACIDOPHILUS/BULGARICUS 1 EACH TAB.CHEW PO SCH (09:21)
[2020-01-23] MEDS: ATORVASTATIN 10 MG TABLET PO SCH (09:21)
[2020-01-23] MEDS: AMLODIPINE BESYLATE 5 MG TABLET PO SCH (09:22)
[2020-01-23] MEDS: CITALOPRAM HYDROBROMIDE 20 MG TABLET PO SCH (09:22)
[2020-01-23] MEDS: METFORMIN 500 MG TABLET PO SCH ×2 (09:28→17:29)
--- NOTE | 2020-01-23 10:00 | NUR ---
DIVYA HELD IN AM PT. ATE LITTLE AMT.
[2020-01-23] MEDS: HYDROCORTISONE 1% CREAM 28.35 GM TUBE TP SCH (10:13)
--- NOTE | 2020-01-23 12:00 | NUR ---
DR. DENNEY IN AWARE NOT EATING MUCH.
[2020-01-23] MEDS: ACETAMINOPHEN 325 MG TABLET PO PRN (13:45)
--- NOTE | 2020-01-23 14:09 | NUR ---
JUS T MEDICATED WITH TYLENOL 650 MG PO FOR HEADACHE.
--- NOTE | 2020-01-23 14:10 | NUR ---
GROUP NOTE: SW encouraged pt to attend group therapy on this present day. Pt refused due to being on the phone with her son.
[2020-01-23 15:56] VITALS: BP 113/59
--- NOTE | 2020-01-23 18:00 | NUR ---
no change in status.
[2020-01-23 20:09] VITALS: BP 139/71
[2020-01-23] MEDS: ARIPIPRAZOLE 5 MG TABLET PO SCH (21:34)
[2020-01-23] MEDS: *INSULIN REGULAR(HUMULIN R)HUM 100 UNIT/ML VIAL SQ PRN (21:37)
[2020-01-24] MEDS: BLOOD SUGAR DIAGNOSTIC 1 EACH STRIP VI SCH ×4 (07:39→21:17)
[2020-01-24 08:00] VITALS: BP 151/84
[2020-01-24] MEDS: ACIDOPHILUS/BULGARICUS 1 EACH TAB.CHEW PO SCH (08:38)
[2020-01-24] MEDS: CITALOPRAM HYDROBROMIDE 20 MG TABLET PO SCH (08:38)
[2020-01-24] MEDS: PANTOPRAZOLE 40 MG TABLET.DR PO SCH (08:38)
[2020-01-24] MEDS: METFORMIN 500 MG TABLET PO SCH ×2 (08:39→16:39)
[2020-01-24] MEDS: AMLODIPINE BESYLATE 5 MG TABLET PO SCH (08:39)
[2020-01-24] MEDS: ASPIRIN EC 81 MG TABLET.DR PO SCH (08:39)
[2020-01-24] MEDS: GLIMEPIRIDE 1 MG TABLET PO SCH (08:39)
[2020-01-24] MEDS: ATORVASTATIN 10 MG TABLET PO SCH (08:39)
[2020-01-24] MEDS: HYDROCORTISONE 1% CREAM 28.35 GM TUBE TP SCH (08:40)
--- NOTE | 2020-01-24 10:25 | NUR ---
FAMILY CONTACT: SW contacted pts son Chepe ([phone]) to discuss pts discharge plan. Per son, he states pt is delusional and wishes for pt to be referred to a SNF. Son states he feels like he will not be able to manage pts behavior at home. SW stated that she will refer pt to [facility] and [facility], son agreed.
--- NOTE | 2020-01-24 10:34 | NUR ---
SNF REFERRAL: faxed SNF referral to [facility] (SNF) [id number] [facility] [address] and [facility] ([facility]) [address] [facility] [address] [address] for review.
--- NOTE | 2020-01-24 11:34 | NUR ---
SNF CONTACT: SW received a call from Xiao, admissions nurse at [facility] ([facility]) [address] [facility] [address] stating pt has been accepted to the facility.
--- NOTE | 2020-01-24 11:35 | NUR ---
SNF CONTACT: SW received a call from Kiana site safety coordinator at [facility] ([facility]) [address] [facility] [address] stating that currently facility is not accepted pts as facility does not have [facility] clearance and will follow up with ILEANA on Wednesday01/29/20 to provide SW with an update on [facility] clearance.
--- NOTE | 2020-01-24 13:48 | NUR ---
GROUP NOTE: Pt was present during group therapy on this present day. Pt was unable to engage in an appropriate conversation due to Dementia and Delusional thinking. Pt was talking nonsensically and stating that her came to give her a ring.
[2020-01-24 16:00] VITALS: BP 125/60
[2020-01-24 20:04] VITALS: BP 135/66
[2020-01-24] MEDS: ARIPIPRAZOLE 5 MG TABLET PO SCH (21:17)
[2020-01-24] MEDS: *INSULIN REGULAR(HUMULIN R)HUM 100 UNIT/ML VIAL SQ PRN (21:18)
[2020-01-24] MEDS: TEMAZEPAM 7.5 MG CAPSULE PO PRN (23:16)
--- NOTE | 2020-01-24 23:19 | NUR ---
GPS RN NOTES: INSOMNIA UPON DOING ROUNDS, PT CRYING IN BED AWAKE. PT C/O UNABLE TO SLEEP. NO SOB. NO RESP DISTRESS. BREATHING EVEN AND UNLABORED. NO PAIN AT THIS TIME. OFFERED RESTORIL 7.5 MG PO PRN ORDERED. PT AGREED AND TOLERATED MEDICATION WELL. CONTINUE TO MONITOR,
[2020-01-25] MEDS: BLOOD SUGAR DIAGNOSTIC 1 EACH STRIP VI SCH ×4 (07:33→21:08)
[2020-01-25 07:42] VITALS: BP 100/56
[2020-01-25 07:43] VITALS: BP 132/81
[2020-01-25 08:00] VITALS: BP 132/81
[2020-01-25] MEDS: GLIMEPIRIDE 1 MG TABLET PO SCH (08:21)
[2020-01-25] MEDS: PANTOPRAZOLE 40 MG TABLET.DR PO SCH (08:21)
[2020-01-25] MEDS: AMLODIPINE BESYLATE 5 MG TABLET PO SCH (08:21)
[2020-01-25] MEDS: ATORVASTATIN 10 MG TABLET PO SCH (08:21)
[2020-01-25] MEDS: CITALOPRAM HYDROBROMIDE 20 MG TABLET PO SCH (08:21)
[2020-01-25] MEDS: ACIDOPHILUS/BULGARICUS 1 EACH TAB.CHEW PO SCH (08:21)
[2020-01-25] MEDS: ASPIRIN EC 81 MG TABLET.DR PO SCH (08:21)
[2020-01-25] MEDS: METFORMIN 500 MG TABLET PO SCH ×2 (08:21→17:19)
[2020-01-25] MEDS: HYDROCORTISONE 1% CREAM 28.35 GM TUBE TP SCH (08:37)
--- NOTE | 2020-01-25 10:39 | NUR ---
FAMILY CONTACT: SW received a call from pts son Chepe ([phone]) stating that he received a call from [facility] and is requesting more information and other placement options including at home care. ILEANA informed him that due to COVID-19 there are many facilities that are currently not accepting pts and also informed him that pt would benefit from short term SNF placement rather than going straight home from the hospital as this will prevent pts readmission. SW also informed son that if he wishes for 24 hour care at home then the family is responsible for payment. Son stated he will follow up with MD and discuss discharge plan with him.
--- NOTE | 2020-01-25 14:21 | NUR ---
GROUP NOTE: Group Topic was on how to manage stress. Patient was able to engage in group. Patient stayed in the group for 10 minutes then had to be dismissed because she was argumentative with other peers and stated that the peers were "liars".
[2020-01-25 16:00] VITALS: BP 134/69
[2020-01-25] MEDS: *INSULIN REGULAR(HUMULIN R)HUM 100 UNIT/ML VIAL SQ PRN ×2 (17:19→22:09)
[2020-01-25 20:45] VITALS: BP 134/68
[2020-01-25] MEDS: ARIPIPRAZOLE 5 MG TABLET PO SCH (21:09)
[2020-01-25] MEDS: NAPROXEN 250 MG TABLET PO PRN (22:07)
--- NOTE | 2020-01-25 22:12 | NUR ---
GPS RN NOTES: PATIENT'S BLOOD GLUCOSE LEVEL IS 94- NO SLIDING SCALE COVERAGE NEEDED AT THIS TIME. PROVIDED THE PATIENT WITH SOME SNACKS AND DRINKS. PATIENT ALSO COMPLAINED OF KNEE PAIN. REQUESTED FOR PAIN MEDICATION- NAPROXEN GIVEN PRN ORDER. WILL MONITOR EFFICACY OF MEDICATION TO THE PATIENT.
--- NOTE | 2020-01-25 23:04 | NUR ---
GPS RN NOTES: PATIENT IN THE ROOM, NOTED TO BE AWAKE, OFFERED HER SLEEPING PILL. PATIENT REFUSED TO TAKE ANY SLEEPING MEDS AT THIS TIME.
[2020-01-26] MEDS: LORAZEPAM 0.5 MG TABLET PO PRN (00:24)
[2020-01-26] MEDS: BLOOD SUGAR DIAGNOSTIC 1 EACH STRIP VI SCH ×4 (07:56→21:46)
[2020-01-26 08:00] VITALS: BP 139/73
[2020-01-26] MEDS: ACIDOPHILUS/BULGARICUS 1 EACH TAB.CHEW PO SCH (08:24)
[2020-01-26] MEDS: ATORVASTATIN 10 MG TABLET PO SCH (08:24)
[2020-01-26] MEDS: CITALOPRAM HYDROBROMIDE 20 MG TABLET PO SCH (08:24)
[2020-01-26] MEDS: METFORMIN 500 MG TABLET PO SCH ×2 (08:24→16:35)
[2020-01-26] MEDS: ASPIRIN EC 81 MG TABLET.DR PO SCH (08:24)
[2020-01-26] MEDS: GLIMEPIRIDE 1 MG TABLET PO SCH (08:24)
[2020-01-26] MEDS: PANTOPRAZOLE 40 MG TABLET.DR PO SCH (08:25)
[2020-01-26] MEDS: AMLODIPINE BESYLATE 5 MG TABLET PO SCH (08:25)
[2020-01-26] MEDS: HYDROCORTISONE 1% CREAM 28.35 GM TUBE TP SCH (08:29)
--- NOTE | 2020-01-26 10:12 | NUR ---
FAMILY CONTACT: SW received a call from pts son Chepe ([phone]) and he stated that he wanted to receive an update regarding the pts current treatment. SW stated that the pt was accepted to [facility] and he stated that he wanted to see if the pt can be referred to two other placements as well: [facility] and [facility]. SW stated that she will refer the pt but cannot guarantee placement. He stated that he would also like to take the pt home if that is possible and the SW stated that he has the right to do that but recommended that he wait closer to discharge to evaluate how the pt presents and what her needs will be.
--- NOTE | 2020-01-26 13:16 | NUR ---
FAMILY CONTACT: SW received a call from pts son Chepe ([phone]) and discussed the pts discharge for Wednesday. SW stated that placement needs to be decided and the pts son stated that he was going to drive by the facility today to make sure it is appropriate for the pt.
--- NOTE | 2020-01-26 14:51 | NUR ---
Social Work Group Note: clay house worker attempted to invite pt to group. Pt refused to join and stated that she was "tired".
[2020-01-26 16:00] VITALS: BP 127/63
[2020-01-26 19:51] VITALS: BP 151/70
[2020-01-26] MEDS: ARIPIPRAZOLE 5 MG TABLET PO SCH (21:35)
--- NOTE | 2020-01-26 21:48 | NUR ---
GPS RN NOTE: BLOOD SUGAR 102MG/DL. NO INSULIN NEEDED PER SLIDING SCALE ORDER
[2020-01-26] MEDS: TEMAZEPAM 7.5 MG CAPSULE PO PRN (22:19)
[2020-01-27] MEDS: ACETAMINOPHEN 325 MG TABLET PO PRN (00:31)
[2020-01-27] MEDS: BLOOD SUGAR DIAGNOSTIC 1 EACH STRIP VI SCH ×4 (07:49→22:00)
[2020-01-27] MEDS: INSULIN REGULAR, HUMAN 100 UNIT/ML 3 ML VIAL SQ PRN (07:54)
[2020-01-27 08:00] VITALS: BP 131/54
[2020-01-27] MEDS: CITALOPRAM HYDROBROMIDE 20 MG TABLET PO SCH (08:33)
[2020-01-27] MEDS: PANTOPRAZOLE 40 MG TABLET.DR PO SCH (08:33)
[2020-01-27] MEDS: AMLODIPINE BESYLATE 5 MG TABLET PO SCH (08:34)
[2020-01-27] MEDS: ASPIRIN EC 81 MG TABLET.DR PO SCH (08:35)
[2020-01-27] MEDS: ACIDOPHILUS/BULGARICUS 1 EACH TAB.CHEW PO SCH (08:35)
[2020-01-27] MEDS: METFORMIN 500 MG TABLET PO SCH ×2 (08:35→17:37)
[2020-01-27] MEDS: GLIMEPIRIDE 1 MG TABLET PO SCH (08:35)
[2020-01-27] MEDS: ATORVASTATIN 10 MG TABLET PO SCH (08:35)
[2020-01-27] MEDS: HYDROCORTISONE 1% CREAM 28.35 GM TUBE TP SCH (09:04)
[2020-01-27 13:19] LABS: BASOPHILS # (AUTO) 0.1 /CMM (0.0-0.2); BASOPHILS % (AUTO) 1.2 % (0.0-2.0); EOSINOPHILS % (AUTO) 3.3 % (0.0-6.0); HEMATOCRIT 39 % (33-45); HEMOGLOBIN 12.6 g/dL (11.5-14.8); LYMPHOCYTES # (AUTO) 1.9 /CMM (0.8-4.8); MEAN CORPUSCULAR HGB CONC 33 g/dl (31.0-36.0); MEAN CORPUSCULAR VOLUME 96 fL (82-100); MONOCYTES # (AUTO) 1.3 /CMM (0.1-1.30); MONOCYTES % (AUTO) 14.2 % (2.0-12.0); NEUTROPHILS # (AUTO) 5.7 /CMM (1.8-8.9); NEUTROPHILS % (AUTO) 61.3 % (43.0-81.0); PLATELET COUNT (AUTO) 410 /CMM (150-450); RED BLOOD CELL COUNT(AUTO) 4.05 MIL/uL (4.0-5.2); WHITE BLOOD COUNT (AUTO) 9.3 K/uL (4.3-11.0)
[2020-01-27 14:07] LABS: ALBUMIN 3.5 g/dL (3.4-5.0); BILIRUBIN,TOTAL 0.2 mg/dL (0.2-1.0); CALCIUM, SERUM 9.6 mg/dL (8.5-10.1); TOTAL PROTEIN, SERUM 8.2 g/dL (6.4-8.2)
[2020-01-27 16:00] VITALS: BP 130/60
[2020-01-27 20:19] VITALS: BP 135/61
[2020-01-27] MEDS: LORAZEPAM 0.5 MG TABLET PO PRN (20:25)
--- NOTE | 2020-01-27 20:55 | NUR ---
GPS RN NOTE: RECEIVED PT LAYING ON BED, AWAKE, ALERT AND ORIENTED X2. APPEARS DEPRESSED, ANXIOUS, FLAT AFFECT, GUARDED, NEEDY, RESPONDING TO INTERNAL STIMULI, DISHEVELED, AND DISORGANIZED. PER PT IS IRRITABLE AND ANXIOUS DUE TO SCREAMING AND YELLING FROM OTHER PTS. ATIVAN 0.5MG 2TABS/1MG GIVEN PO ORDERED FOR ANXIETY AT 2024. PT STILL AGITATED. ASSISTED WITH REPOSITIONING NEEDED. NO S/S OF DISTRESS. RESPIRATION EVEN AND UNLABORED WITH EQUAL RISE AND FALL OF THE CHEST, ON ROOM AIR WIT SPO2 OF 96%. PT DENIES SI AT THIS TIME. OFFERED FLUID AND SNACK TOLERATED. SAFETY AND FALL PRECAUTION OBSERVED, CALL [facility] WITHIN REACH. Q15 MINUTES AND Q1HR OBSERVATIONS CONTINUED. WILL CONTINUE TO MONITOR PT FOR MOOD, SAFETY AND BEHAVIOR.
[2020-01-27] MEDS: ARIPIPRAZOLE 5 MG TABLET PO SCH (21:46)
[2020-01-27] MEDS: TEMAZEPAM 7.5 MG CAPSULE PO PRN (22:19)
[2020-01-28] MEDS: BLOOD SUGAR DIAGNOSTIC 1 EACH STRIP VI SCH ×4 (07:40→21:18)
[2020-01-28 08:00] VITALS: BP 113/66
[2020-01-28] MEDS: ASPIRIN EC 81 MG TABLET.DR PO SCH (09:03)
[2020-01-28] MEDS: ATORVASTATIN 10 MG TABLET PO SCH (09:04)
[2020-01-28] MEDS: PANTOPRAZOLE 40 MG TABLET.DR PO SCH (09:04)
[2020-01-28] MEDS: CITALOPRAM HYDROBROMIDE 20 MG TABLET PO SCH (09:04)
[2020-01-28] MEDS: ACIDOPHILUS/BULGARICUS 1 EACH TAB.CHEW PO SCH (09:04)
[2020-01-28] MEDS: GLIMEPIRIDE 1 MG TABLET PO SCH (09:04)
[2020-01-28] MEDS: METFORMIN 500 MG TABLET PO SCH ×2 (09:04→17:16)
[2020-01-28] MEDS: AMLODIPINE BESYLATE 5 MG TABLET PO SCH (09:04)
[2020-01-28] MEDS: HYDROCORTISONE 1% CREAM 28.35 GM TUBE TP SCH (09:39)
[2020-01-28] MEDS: INSULIN REGULAR, HUMAN 100 UNIT/ML 3 ML VIAL SQ PRN (12:31)
[2020-01-28 16:00] VITALS: BP_SYST 124; BP_SYST 126; BP_DIAS 68; BP_DIAS 79
[2020-01-28 20:04] VITALS: BP 132/68
[2020-01-28] MEDS: ACETAMINOPHEN 325 MG TABLET PO PRN (20:41)
--- NOTE | 2020-01-28 20:41 | NUR ---
GPS-RN NOTE: RIGHT LOWER LEG PAIN PATIENT C/O RIGHT LOWER LEG PAIN ON A PAIN SCALE OF 3/10. ADMINISTERED ACETAMINOPHEN 650MG PO ORDERED. WILL CONTINUE TO MONITOR.
[2020-01-28] MEDS: LORAZEPAM 0.5 MG TABLET PO PRN (21:21)
--- NOTE | 2020-01-28 21:21 | NUR ---
GPS-RN NOTE: ANXIETY PATIENT IS ANXIOUS AND RESTLESS. ADMINISTERED ATIVAN 1MG PO ORDERED. WILL CONTINUE TO MONITOR FOR SAFETY AND BEHAVIOR.
[2020-01-28] MEDS ORDERED: ARIPIPRAZOLE 5 MG TABLET PO SCH (22:00)
[2020-01-29] MEDS: TEMAZEPAM 7.5 MG CAPSULE PO PRN (02:19)
--- NOTE | 2020-01-29 02:25 | NUR ---
GPS-RN NOTE: INSOMNIA PATIENT C/O UNABLE TO SLEEP. ADMINISTERED RESTORIL 7.5MG PO ORDERED. WILL CONTINUE TO MONITOR.
[2020-01-29] MEDS: BLOOD SUGAR DIAGNOSTIC 1 EACH STRIP VI SCH ×2 (07:50→11:30)
[2020-01-29 08:00] VITALS: BP 129/66
[2020-01-29] MEDS: METFORMIN 500 MG TABLET PO SCH (08:32)
[2020-01-29] MEDS: AMLODIPINE BESYLATE 5 MG TABLET PO SCH (08:32)
[2020-01-29] MEDS: ATORVASTATIN 10 MG TABLET PO SCH (08:32)
[2020-01-29] MEDS: GLIMEPIRIDE 1 MG TABLET PO SCH (08:32)
[2020-01-29] MEDS: ACIDOPHILUS/BULGARICUS 1 EACH TAB.CHEW PO SCH (08:33)
[2020-01-29] MEDS: PANTOPRAZOLE 40 MG TABLET.DR PO SCH (08:33)
[2020-01-29] MEDS: ASPIRIN EC 81 MG TABLET.DR PO SCH (08:33)
--- NOTE | 2020-01-29 09:41 | NUR ---
FAMILY CONTACT: SW call pts son Chepe ([phone]) and inquired about his decision regarding the pts discharge. He stated that he accepts the placement of [facility]. He stated that he went by the facility on Wednesday and spoke to the administration to understand the facility. He stated that he hopes the pt will benefit from the physical therapy from the facility.
[2020-01-29] MEDS: HYDROCORTISONE 1% CREAM 28.35 GM TUBE TP SCH (09:45)
--- NOTE | 2020-01-29 11:31 | NUR ---
RN-CO: Patient is calm and cooperative to care. Participating in group activities. She took her medications and denied pain and discomfort. Patient denied SI/HI, VH, AH. Dr Mack order to discontinue hold and discharge patient to SNF. Son Chepe is aware. Dr Benoit Escamilla seen and medically cleared the patient for discharge. [facility]. She verbally agreed in all the instructions in the discharge papers but reluctant to sign. All her belongings will be given back to the patient.
--- NOTE | 2020-01-29 13:12 | NUR ---
SNF Contact: ILEANA faxed a COVID test to Xiao from [facility] to the fax number: [phone].
--- NOTE | 2020-01-29 13:13 | NUR ---
Discharge Note: Pt was discharged to [facility] SNF located at [address] [facility], [place] [address]; . Pt was transported via [facility] at 3:30PM (Trip #[id number]). Pts son, Chepe ([phone]), was made aware of the discharge and he accepted it. Upon discharge, the pt appeared to be in a anxious mood and presented with a distressed affect. Pt denied both suicidal and homicidal ideation as well as auditory and visual hallucinations. Pt appeared to be oriented x2. Pt required assistance with ambulation. Pt appeared to be well groomed and appropriately dressed. Pt will continue to be under the care of psychiatrist, Dr. Mack, located at [address] [facility] [facility], [address] [place] [address]; and piece dyeing machine tender, Dr. Bolivar, located at [address] [place] [address]; . Pt verbally agreed to the placement but refused to sign the Choice of Vendor.
--- NOTE | 2020-01-29 14:12 | NUR ---
RN-CO: Report given to "Harrison OWENS.
[2020-01-29 16:00] VITALS: BP 129/69
--- NOTE | 2020-01-29 16:13 | NUR ---
RN-CO: Patient was picked up by [facility] TRIP NUMBER [phone].
== END 2020-01-29 16:15 | DRG 885 ==
LOC: ER 04:08 → GPS 14:12
PROVIDERS: ADMIT Psychiatry & Neurology Psychiatry; ATTEND Student in an Organized Health Care Education/Training Program
PROC: 0HBRXZZ Excision of Toe Nail, External Approach (ICD-10-PCS; principal; 2020-01-18)
DX: F31.64 Bipolar disorder, current episode mixed, severe, with psychotic features (principal); F01.50 Vascular dementia, unspecified severity, without behavioral disturbance, psychotic disturbance, mood disturbance, and anxiety; E44.1 Mild protein-calorie malnutrition; F29 Unspecified psychosis not due to a substance or known physiological condition; E86.0 Dehydration; E87.6 Hypokalemia; F41.9 Anxiety disorder, unspecified; E78.5 Hyperlipidemia, unspecified; L30.9 Dermatitis, unspecified; I10 Essential (primary) hypertension; Z73.6 Limitation of activities due to disability; K44.9 Diaphragmatic hernia without obstruction or gangrene; M19.90 Unspecified osteoarthritis, unspecified site; M20.41 Other hammer toe(s) (acquired), right foot; M20.42 Other hammer toe(s) (acquired), left foot; Z79.82 Long term (current) use of aspirin; L60.0 Ingrowing nail; F03.90 Unspecified dementia, unspecified severity, without behavioral disturbance, psychotic disturbance, mood disturbance, and anxiety; E11.36 Type 2 diabetes mellitus with diabetic cataract; Z79.84 Long term (current) use of oral hypoglycemic drugs; Z68.23 Body mass index [BMI] 23.0-23.9, adult; Z86.73 Personal history of transient ischemic attack (TIA), and cerebral infarction without residual deficits
CPT/HCPCS: 36415; 80048-TC; 80053-TC; 80061-TC; 80076-TC; 80305; 81000-TC; 82962-TC; 84443-TC; 85025-TC; 87081-TC; G0480; J1815